=== PATIENT | female | born 1970 | race Caucasian/White ===

== ENCOUNTER 2023-08-13 06:51 | Day surgery (SDC) | payer MEDICARE, MEDICAID ==
[2023-08-13] MEDS ORDERED: Midazolam 1 MG/ML 2 ML SDV ONE (07:27)
[2023-08-13] MEDS ORDERED: Propofol 200 MG/20 ML SDV ONE (07:27)
[2023-08-13] MEDS ORDERED: fentaNYL 100 MCG/2 ML SDV ONE (07:27)
[2023-08-13] MEDS: Sodium Chloride 0.9% 1,000 ML IV SCH (08:09)
[2023-08-13] MEDS ORDERED: Glycopyrrolate 0.2 MG/ML 2 ML SDV ONE (08:43)
== END 2023-08-13 09:50 | disposition home or self-care (01) ==
LOC: JP.SDS 06:51
PROVIDERS: ATTEND Surgery
DX: Z12.11 Encounter for screening for malignant neoplasm of colon (principal); I10 Essential (primary) hypertension; K21.9 Gastro-esophageal reflux disease without esophagitis; F32.A Depression, unspecified; N18.6 End stage renal disease; E78.5 Hyperlipidemia, unspecified; E11.9 Type 2 diabetes mellitus without complications; K57.30 Diverticulosis of large intestine without perforation or abscess without bleeding
CPT/HCPCS: 45378; 82947; J2250; J2704; J3010; J7030; J3490

== ENCOUNTER 2023-08-29 22:00 | Emergency (ER) | payer MEDICARE, MEDICAID ==
[2023-08-29] MEDS: Acetaminophen/oxyCODONE 325-5 MG Tab PO PRN (22:48)
[2023-08-29] MEDS: Clindamycin HCl 150 MG Cap PO ONE (22:48)
== END 2023-08-29 23:05 | disposition home or self-care (01) ==
LOC: JP.ED 22:00
DX: K04.7 Periapical abscess without sinus (principal); K02.9 Dental caries, unspecified; I10 Essential (primary) hypertension; E78.00 Pure hypercholesterolemia, unspecified; K21.9 Gastro-esophageal reflux disease without esophagitis; E11.21 Type 2 diabetes mellitus with diabetic nephropathy; Z91.018 Allergy to other foods; Z88.2 Allergy status to sulfonamides; Z79.82 Long term (current) use of aspirin; Z79.899 Other long term (current) drug therapy; Z90.49 Acquired absence of other specified parts of digestive tract
CPT/HCPCS: 99282; A9270; 99283

== ENCOUNTER 2024-03-14 18:09 | Emergency (ER) | payer MEDICARE, MEDICAID | END 2024-03-14 20:33 | disposition home or self-care (01) | LOC: JP.ED 18:09 | DX: M54.50 Low back pain, unspecified (principal); E78.00 Pure hypercholesterolemia, unspecified; I10 Essential (primary) hypertension; K21.9 Gastro-esophageal reflux disease without esophagitis; E11.40 Type 2 diabetes mellitus with diabetic neuropathy, unspecified; Z90.49 Acquired absence of other specified parts of digestive tract; Z79.82 Long term (current) use of aspirin; Z79.899 Other long term (current) drug therapy; Z91.018 Allergy to other foods; Z88.0 Allergy status to penicillin | CPT/HCPCS: 72100; 99284 ==